=== PATIENT | male | born 1960 | race Caucasian/White ===

== ENCOUNTER → 2016-12-16 | Outpatient (CLI) | payer BC ==
--- NOTE | 2016-12-16 17:33 | Diagnostic Imaging Report ---
INDICATION: Umbilical hernia. Frontal and lateral chest radiographs are performed. TIME OF EXAM: 3:08 PM. AVAILABLE COMPARISONS: None FINDINGS: The cardiac silhouette size is upper limits of normal. The darnell are within normal limits. The pulmonary vascularity is normal. There is no pleural effusion or lung lesion demonstrated. No osseous abnormality is identified. IMPRESSION: 1. No significant chest x-ray abnormality is identified. Dictated by: Dictated on workstation # [id number]
== END ==
LOC: RAD 14:52
PROVIDERS: ATTEND Family Medicine
DX: K42.9 Umbilical hernia without obstruction or gangrene (principal)
CPT/HCPCS: 71020

== ENCOUNTER 2017-01-11 06:52 | Day surgery (SDC) | payer BC ==
[~2017-01-11] VITALS: Ht 182.9 cm; Wt 121.8 kg
[2017-01-11] VITALS (7 sets, daily range): BP systolic 130–150; BP diastolic 76–97
[~2017-01-11 06:52] MED LIST: LACTATED RINGERS 1,000 ML IV SCH; LIDOCAINE/EPINEPHRINE 1%-1:100,000 (XYLOCAINE) 20ML VIAL ONE; SODIUM CHLORIDE FLUSH 3 ML SYR IV SCH; ceFAZolin 2,000 MG in SODIUM CHLORIDE VIAL (PF) 20 ML IV SCH
[2017-01-11] MEDS ORDERED: MIDAZOLAM 2 MG/2 ML (VERSED) VIAL ONE (08:08)
[2017-01-11] MEDS ORDERED: ALFENTANIL 500 MCG/ML (ALFENTA) 5 ML AMP IV ONE (08:08)
[2017-01-11] MEDS ORDERED: PROPOFOL 20 ML IV ONE (08:09)
[2017-01-11] MEDS ORDERED: SUCCINYLCHOLINE 20 MG/ML 10 ML VIAL ONE (08:09)
[2017-01-11] MEDS ORDERED: MEPERIDINE 25 MG/ML (DEMEROL) SYRINGE ONE (09:16)
[2017-01-11] MEDS ORDERED: ONDANSETRON 2 MG/ML (Z0FRAN) 2 ML VIAL ONE (09:17)
[2017-01-11] MEDS ORDERED: KETOROLAC 30 MG/ML (TORADOL) 1 ML VIAL IV PRN (10:00)
[2017-01-11] MEDS ORDERED: METOCLOPRAMIDE 10 MG/2 ML (REGLAN) VIAL IV PRN (10:00)
[2017-01-11] MEDS ORDERED: ONDANSETRON 2 MG/ML (Z0FRAN) 2 ML VIAL IV PRN (10:00)
[2017-01-11] MEDS ORDERED: morphine INJ 4 MG/ML 1 ML SYRINGE IV PRN (10:00)
--- NOTE | 2017-01-11 10:05 | NUR ---
Midline abd drsg dry and intact - sitting up in chair - @ bedside
--- NOTE | 2017-01-11 10:15 | NUR ---
Ultram 100 mg po for post op pain "a little"
--- NOTE | 2017-01-11 10:38 | NUR ---
Amb to toilet - voided
--- NOTE | 2017-01-11 13:22 | OPERATIVE REPORT ---
DATE OF OPERATION: 01/11/2017 PRE-OPERATIVE DIAGNOSIS: Symptomatic umbilical hernia. POST-OPERATIVE DIAGNOSIS: Same OPERATIVE PROCEDURE: Umbilical hernia repair with mesh. SURGEON: Alexy Hugo MD REPORTING MANAGER: Pattie May ANESTHESIA: General and tracheal anesthetic. INDICATIONS: The patient is a 56-year-old referred by Dr. Toscano with a symptomatic umbilical hernia that did seem to reduce on examination in our office. He presents to [facility] for elective repair of this hernia. DESCRIPTION OF PROCEDURE: The patient was informed of the risks and benefits and agreed to proceed. He was taken to the operating room and placed supine on standard operating table. He was administered preoperative IV antibiotics then general and tracheal anesthetic. When properly anesthetized his abdomen was prepped and draped in standard sterile fashion and 1% lidocaine with epinephrine was injected to both the umbilicus and a curved linear incision was made with at 15 blade scalpel through the skin, dissection was carried forth with the Metzenbaum scissors to expose the underlying hernia sack attached to the dermis of the umbilicus. A hemostat was used to bluntly create a track below the stock of the umbilicus and this was elevated, the 15 blade scalpel was used to gentle divide the attachments between the hernia sack and the underside of the umbilical skin, the two. The hernia sack appeared to consist of omentum inside it, and this was reduced easily back into the peritoneal cavity through a defect that measured about 18 mm in diameter. A combination of sharp and blunt dissection was then used to clear the underside of the fascia to allow space for the mesh, which was placed in the preperitoneal space since the sack had not been opened. The edges of the defect were scored with cautery then the defect was closed transversely with interrupted 2-O Prolene, incorporating the underlying mesh surface into the middle sutures. The skin of the umbilicus was then tacked back to the connective tissue below to recreate the appearance of the belly button. The subcutaneous tissue was reapproximated with interrupt 3-O Vicryl and the skin was then closed with subcuticular 4-O Monocryl and dressing was applied. The patient tolerated the procedure without comoplications.
== END 2017-01-11 10:52 | disposition home or self-care (01) ==
LOC: ASC 06:52
PROVIDERS: ATTEND Surgery
DX: K42.9 Umbilical hernia without obstruction or gangrene (principal)
CPT/HCPCS: 49585; J0330; J2175; J2250; J7120